=== PATIENT | female | born 1960 | race Caucasian/White ===

== ENCOUNTER → 2017-01-25 | Outpatient (CLI) | payer BC | END | disposition home or self-care (01) | LOC: RAD 08:30 | PROVIDERS: ATTEND Internal Medicine Hematology & Oncology | DX: C85.91 Non-Hodgkin lymphoma, unspecified, lymph nodes of head, face, and neck (principal); Z45.2 Encounter for adjustment and management of vascular access device | CPT/HCPCS: 36569; 76937; 77001; C1751 ==

== ENCOUNTER → 2017-09-06 | Outpatient (CLI) | payer BC | END | disposition home or self-care (01) | LOC: RAD 07:29 | PROVIDERS: ATTEND Internal Medicine Hematology & Oncology | DX: Z45.2 Encounter for adjustment and management of vascular access device (principal); C85.91 Non-Hodgkin lymphoma, unspecified, lymph nodes of head, face, and neck | CPT/HCPCS: 36569; 76937; 77001; C1751 ==

== ENCOUNTER 2017-09-17 06:32 | Emergency (ER) | payer BC ==
[~2017-09-17] VITALS: Ht 162.6 cm; Wt 57.6 kg
[2017-09-17] MEDS ORDERED: SODIUM CHLORIDE 0.9% 1,000 ML IV ONE (06:52)
[2017-09-17] MEDS ORDERED: FAMOTIDINE 20 MG/2 ML IVP ONE (07:00)
[2017-09-17] MEDS ORDERED: SODIUM CHLORIDE 0.9% 1,000ML IVBOLUS ONE (07:00)
[2017-09-17] MEDS ORDERED: FAMOTIDINE 20 MG/2 ML ONE (07:23)
[2017-09-17] MEDS ORDERED: ONDANSETRON 2MG/ML, 2ML IVPush ONE (07:30)
[2017-09-17 07:32] LABS: HEMATOCRIT 39.2 % (34.6-47.8); HEMOGLOBIN 13.6 g/dL (11.7-16.4); WHITE BLOOD COUNT 8.6 x10^3/uL (3.4-10)
[2017-09-17 07:40] LABS: ASPARTATE AMINO TRANSFERASE 28 U/L (15-37); BLOOD UREA NITROGEN 18 mg/dL (7-18)
[2017-09-17] MEDS ORDERED: METOCLOPRAMIDE 5 MG/ML, 2ML ONE (08:10)
[2017-09-17] MEDS ORDERED: METOCLOPRAMIDE 5 MG/ML, 2ML IVPush ONE (08:30)
[2017-09-17 10:04] VITALS: BP 134/64
[2017-09-18] MEDS ORDERED: TEST1.25 TD (21:14)
[2017-09-18] MEDS ORDERED: PROG100C16 PO (21:14)
[2017-09-18] MEDS ORDERED: THYR97.5 PO (21:14)
== END 2017-09-17 11:32 | disposition home or self-care (01) ==
LOC: ED 08:15
DX: K59.00 Constipation, unspecified (principal); C85.90 Non-Hodgkin lymphoma, unspecified, unspecified site
CPT/HCPCS: 36415; 74022; 80053; 81003; 83690; 85025; 96361; 96374; 96375; 99285; J2765; J7030; S0028

== ENCOUNTER 2017-09-18 18:37 | Inpatient (IN) | payer BC ==
[~2017-09-18] VITALS: Ht 162.6 cm; Wt 64.4 kg
[2017-09-18 19:53] LABS: ASPARTATE AMINO TRANSFERASE 22 U/L (15-37); BLOOD UREA NITROGEN 12 mg/dL (7-18)
[2017-09-18 19:55] LABS: HEMATOCRIT 37.6 % (34.6-47.8); HEMOGLOBIN 12.9 g/dL (11.7-16.4); WHITE BLOOD COUNT 6.8 x10^3/uL (3.4-10)
[2017-09-18] MEDS ORDERED: SODIUM CHLORIDE FLUSH 10ML SYR IVF ONE (20:00)
[2017-09-18] MEDS ORDERED: ONDANSETRON 2MG/ML, 2ML IVPush ONE (20:00)
[2017-09-18] MEDS ORDERED: HYDROmorphone 1 MG/ML, 1ML IV ONE (20:00)
[2017-09-18] MEDS ORDERED: SODIUM CHLORIDE 0.9% 1,000ML IVBOLUS ONE (20:00)
[2017-09-18] MEDS ORDERED: HYDROmorphone 2 MG/ML, 1ML ONE ×2 (20:01→22:06)
[2017-09-18] MEDS ORDERED: ONDANSETRON 2MG/ML, 2ML ONE (20:01)
[2017-09-18] MEDS ORDERED: KETOROLAC 30 MG/1 ML ONE (21:09)
[2017-09-18] MEDS ORDERED: THYR97.5 PO (21:14)
[2017-09-18] MEDS ORDERED: PROG100C16 PO (21:14)
[2017-09-18] MEDS ORDERED: TEST1.25 TD (21:14)
[2017-09-18] MEDS ORDERED: KETOROLAC 30 MG/1 ML IVPush ONE (21:30)
[2017-09-18] MEDS ORDERED: GOLYTELY 4,000ML ORAL.SOL PO ONE (22:30)
[2017-09-18] MEDS ORDERED: DIPHENHYDRAMINE 25 MG CAPSULE PO PRN (22:30)
[2017-09-19] MEDS: SODIUM CHLORIDE FLUSH 10ML SYR IVF SCH ×3 (00:14→20:10)
[2017-09-19] MEDS: ONDANSETRON 2MG/ML, 2ML IVPush PRN ×2 (00:15→23:02)
[2017-09-19] MEDS: HYDROmorphone 2 MG/ML, 1ML IVPush PRN ×7 (00:30→22:15)
[2017-09-19 01:47] VITALS: BP 162/88
[2017-09-19] MEDS ORDERED: OMNIPAQUE 350 MG/ML, 100ML BOTTLE ONE (05:40)
[2017-09-19 06:07] LABS: HEMATOCRIT 34.6 % (34.6-47.8); HEMOGLOBIN 11.9 g/dL (11.7-16.4)
[2017-09-19 06:17] LABS: ASPARTATE AMINO TRANSFERASE 24 U/L (15-37); BLOOD UREA NITROGEN 14 mg/dL (7-18)
[2017-09-19 07:16] VITALS: BP 153/87
[2017-09-19] MEDS ORDERED: SODIUM CHLORIDE 0.9% 1,000 ML IV SCH (08:00)
[2017-09-19 14:08] VITALS: BP_SYST 138; BP_SYST 160; BP_DIAS 71; BP_DIAS 80
[2017-09-19 18:30] VITALS: BP 185/77
[2017-09-19] MEDS: SODIUM CHLORIDE 0.9% 1,000 ML IV SCH (18:35)
[2017-09-19 18:41] VITALS: BP 146/61
[2017-09-20 02:41] VITALS: BP 177/77
[2017-09-20] MEDS: HYDROmorphone 2 MG/ML, 1ML IVPush PRN ×6 (02:47→23:11)
[2017-09-20] MEDS: SODIUM CHLORIDE 0.9% 1,000 ML IV SCH ×2 (03:37→16:58)
[2017-09-20 06:00] LABS: HEMATOCRIT 30.7 % (34.6-47.8); HEMOGLOBIN 10.6 g/dL (11.7-16.4); WHITE BLOOD COUNT 7.2 x10^3/uL (3.4-10)
[2017-09-20 06:11] LABS: BLOOD UREA NITROGEN 19 mg/dL (7-18)
[2017-09-20 07:13] VITALS: BP 170/74
[2017-09-20 07:41] VITALS: BP 158/71
[2017-09-20] MEDS ORDERED: MIDAZOLAM 1 MG/ML, 5ML ONE ×2 (08:41)
[2017-09-20] MEDS ORDERED: FENTANYL PF 100 MCG/2ML ONE (08:41)
[2017-09-20 13:27] VITALS: BP 164/79
[2017-09-20] MEDS: SODIUM CHLORIDE FLUSH 10ML SYR IVF SCH ×2 (17:02→19:50)
[2017-09-20 19:55] VITALS: BP 179/74
[2017-09-21] MEDS: SODIUM CHLORIDE 0.9% 1,000 ML IV SCH ×3 (01:48→20:40)
[2017-09-21 01:52] VITALS: BP 170/66
[2017-09-21] MEDS: HYDROmorphone 2 MG/ML, 1ML IVPush PRN ×4 (03:36→20:02)
[2017-09-21 06:05] LABS: HEMATOCRIT 29.2 % (34.6-47.8); HEMOGLOBIN 10.1 g/dL (11.7-16.4); WHITE BLOOD COUNT 5.9 x10^3/uL (3.4-10)
[2017-09-21 06:29] LABS: ASPARTATE AMINO TRANSFERASE 16 U/L (15-37); BLOOD UREA NITROGEN 9 mg/dL (7-18)
[2017-09-21 06:50] VITALS: BP 154/83
[2017-09-21] MEDS: SODIUM CHLORIDE FLUSH 10ML SYR IVF SCH ×2 (08:11→20:40)
[2017-09-21 14:04] VITALS: BP 134/76
[2017-09-21] MEDS: ONDANSETRON 2MG/ML, 2ML IVPush PRN (20:09)
[2017-09-21 20:24] VITALS: BP 149/71
[2017-09-22 00:35] VITALS: BP 179/78
[2017-09-22] MEDS: HYDROmorphone 2 MG/ML, 1ML IVPush PRN ×7 (00:38→21:57)
[2017-09-22 05:20] LABS: HEMATOCRIT 30.6 % (34.6-47.8); HEMOGLOBIN 10.8 g/dL (11.7-16.4)
[2017-09-22 05:30] VITALS: BP 150/76
[2017-09-22] MEDS: SODIUM CHLORIDE 0.9% 1,000 ML IV SCH (05:31)
[2017-09-22 05:36] LABS: ASPARTATE AMINO TRANSFERASE 22 U/L (15-37); BLOOD UREA NITROGEN 5 mg/dL (7-18)
[2017-09-22 07:10] VITALS: BP 171/76
[2017-09-22] MEDS ORDERED: OXYcodone/APAP 5/325MG TABLET PO PRN (09:00)
[2017-09-22] MEDS: SODIUM CHLORIDE FLUSH 10ML SYR IVF SCH ×2 (09:50→20:39)
[2017-09-22 13:39] VITALS: BP 180/80
[2017-09-22] MEDS ORDERED: METHYLNALTREXONE 12 MG/0.6 ML SQ SCH (15:30)
[2017-09-22] MEDS: METOCLOPRAMIDE 10MG TABLET PO SCH ×2 (18:08→20:40)
[2017-09-22 19:36] VITALS: BP 170/82
[2017-09-22 22:23] VITALS: BP 179/77
[2017-09-22] MEDS ORDERED: ENALAPRILAT 1.25 MG/ML, 2ML IV PRN (23:00)
[2017-09-22] MEDS ORDERED: LORazepam 2 MG/ML, 1ML IVPush ONE (23:30)
[2017-09-23 01:09] VITALS: BP 158/74
[2017-09-23] MEDS: HYDROmorphone 2 MG/ML, 1ML IVPush PRN ×2 (04:06→09:05)
[2017-09-23] MEDS: METOCLOPRAMIDE 10MG TABLET PO SCH (07:52)
[2017-09-23] MEDS ORDERED: HYDROmorphone 1 MG/ML, 1ML ONE (08:59)
[2017-09-23 09:00] VITALS: BP 168/80
[2017-09-23] MEDS: SODIUM CHLORIDE FLUSH 10ML SYR IVF SCH (09:00)
[2017-09-23] MEDS ORDERED: LORA-446 PO (09:43)
[2017-09-23] MEDS ORDERED: ONDA4TAB10 PO (09:43)
== END 2017-09-23 11:22 | disposition home or self-care (01) | DRG 389 ==
LOC: ED 20:35 → EDIP 21:25 → 4NOR 22:45 → 3NW 09-20 18:04 → DCLOUNGE 09-23 11:22
PROVIDERS: ADMIT Hospitalist; ATTEND Hospitalist
PROC: 0DJD8ZZ Inspection of Lower Intestinal Tract, Via Natural or Artificial Opening Endoscopic (ICD-10-PCS; principal; 2017-09-20 09:00)
DX: K56.600 Partial intestinal obstruction, unspecified as to cause (principal); C85.90 Non-Hodgkin lymphoma, unspecified, unspecified site; K56.0 Paralytic ileus; F12.90 Cannabis use, unspecified, uncomplicated; Z66 Do not resuscitate; Z80.0 Family history of malignant neoplasm of digestive organs; Z82.49 Family history of ischemic heart disease and other diseases of the circulatory system; Z90.49 Acquired absence of other specified parts of digestive tract; Z41.1 Encounter for cosmetic surgery; Z88.8 Allergy status to other drugs, medicaments and biological substances
CPT/HCPCS: 36415; 74020; 74022; 74177; 80048; 80053; 81001; 85025; 85610; 87086; 96361; 96374; 96375; J1170; J1885; J2250; J2405; J3010; Q9967; J2060; J7030